=== PATIENT | female | born 1940 | race Caucasian/White ===

== ENCOUNTER → 2017-12-26 | Outpatient (CLI) | payer MEDICARE ==
--- NOTE | 2017-12-26 09:54 | CT ---
EXAMINATION TYPE: CT abdomen w con DATE OF EXAM: 12/26/2017 HISTORY: Rt flank pain, history of Rt renal CA with partial nephrectomy. Abdominal pain not further s pecified per order. CT DLP: 370.4mGycm Automated Exposure Control for Dose Reduction was Utilized. CONTRAST: CT scan of the abdomen is performed with IV Contrast, patient injected with 100 mL of Omnipaque 300. COMPARISON: None. FINDINGS: LUNG BASES: No significant abnormality is appreciated. LIVER/GB: Cholecystectomy clips are seen. PANCREAS: No significant abnormality is seen. SPLEEN: No significant abnormality is seen. ADRENALS: No significant abnormality is seen. KIDNEYS: There are numerous surgical clips from partial nephrectomy upper pole level right kidney. Ad jacent cortical thinning is seen. There is simple appearing exophytic 1.3 cm cyst posterior medially upper to mid pole left kidney series 3 image 26. There is symmetric cortical medullary uptake and exc retion from both kidneys without evidence of concerning solid or cystic renal mass or hydronephrosis bilaterally. There is subcentimeter hypodense lesion upper pole level right kidney seen best coronal image 61 too small to further characterize but presumed benign. BOWEL: Oral contrast does not reach colonic level. There is no suspicious small or large bowel dilata tion. LYMPH NODES: No greater than 1cm abdominal lymph nodes are appreciated. OSSEOUS STRUCTURES: There is moderate multilevel lateral spurring in the thoracic spine. There is vac uum disc phenomenon with moderate disc space narrowing T11-T12 level. OTHER: There is moderate mixed plaque in the visualized aorta extending into iliac branch vessels IMPRESSION: No significant finding is seen to account for patient's clinical symptoms of right flank pain. Post partial nephrectomy changes upper pole level noted.
== END | disposition home or self-care (01) ==
LOC: RADCTMAIN 08:31
PROVIDERS: ATTEND Internal Medicine Geriatric Medicine
DX: R10.9 Unspecified abdominal pain (principal); Z90.5 Acquired absence of kidney
CPT/HCPCS: 74160; Q9967

== ENCOUNTER → 2018-03-01 | Outpatient (CLI) | payer MEDICARE ==
--- NOTE | 2018-03-04 12:12 | MM ---
Reason for exam: screening (asymptomatic). Last mammogram was performed 2 years ago. History: Patient is postmenopausal and has history of other cancer at age 68. Benign excisional biopsy of the left breast, 1989. Physical Findings: A clinical breast exam by your physician is recommended on an annual basis and results should be correlated with mammographic findings. MG 3D Screening Mammo W/Cad Bilateral CC and MLO view(s) were taken. Prior study comparison: March 02, 2016, mammogram, performed at [facility]. There are scattered fibroglandular densities. Finding #1: There is a 6 mm round mass in the subareolar position of the right breast CC view 15/ and MLO view /. Finding #2: There are typically benign round, linear calcifications in both breasts. New finding since March 02, 2016. ASSESSMENT: Incomplete: need additional imaging evaluation, BI-RAD 0 RECOMMENDATION: Ultrasound of the right breast. [facility] will attempt to contact patient to return for ultrasound.
== END | disposition home or self-care (01) ==
LOC: RADMAMWWP 10:11
PROVIDERS: ATTEND Internal Medicine Geriatric Medicine
DX: Z12.31 Encounter for screening mammogram for malignant neoplasm of breast (principal)
CPT/HCPCS: 77063; 77067

== ENCOUNTER 2018-03-13 07:54 | Day surgery (SDC) | payer MEDICARE ==
[2018-03-08 13:45] VITALS: BMI 23.6
[~2018-03-13 07:54] MED LIST: LACTATED RINGERS 1,000 ML IV SCH
[2018-03-13 08:26] VITALS: RESP 16; TEMP 98.6
[2018-03-13] MEDS ORDERED: LIDOCAINE 1% 20 ML VIAL (10MG/ML) FOR IV START INTRADERMA ONE (08:42)
[2018-03-13] MEDS ORDERED: PROPOFOL 10 MG/ML 20 ML VIAL IV ONE (09:48)
[2018-03-13] MEDS ORDERED: GLYCOPYRROLATE 0.2 MG/ML 2 ML VIAL ONE (09:48)
[2018-03-13] MEDS ORDERED: LIDOCAINE 1% INJ 10MG/ML (20 ML MDV) ONE (09:48)
--- NOTE | 2018-03-13 09:56 | P.GSHP ---
History of Present Illness H&P Date: 03/13/18 Chief Complaint: Screening colonoscopy This a 77-year-old female who presents today for screening colonoscopy. Patient denies any significant GI complaints. Her last colonoscopy was over 4 years ago. She had colon polyps that time. Past Medical History Past Medical History: Cancer, Hyperlipidemia, Hypertension Additional Past Medical History / Comment(s): HX OF KIDNEY CANCET (2008), HX OF COLON POLYPS, CURRENTLY HAS MASS RIGHT BREAST., PT CARES FOR HER WHO HAS ALZHEIMERS. History of Any Multi-Drug Resistant Organisms: None Reported Past Surgical History: Section, Cholecystectomy Additional Past Surgical History / Comment(s): PORTION OF KIDNEY REMOVED FROM CANCER., COLONOSCOPY Past Anesthesia/Blood Transfusion Reactions: No Reported Reaction Past Psychological History: No Psychological Hx Reported Smoking Status: Former smoker Past Alcohol Use History: Rare Additional Past Alcohol Use History / Comment(s): QUIT SMOKING 2008., SMOKED SOCIALLY 1 CARTON PER MONTH. Past Drug Use History: None Reported - Past Family History Father Family Medical History: Cancer Sister(s) Family Medical History: Cancer Additional Family Medical History / Comment(s): LUNG CANCER. COLON CANCER Medications and Allergies Home Medications Medication Instructions Recorded Confirmed Type Lovastatin [Mevacor] 20 mg PO HS 03/08/18 03/13/18 History Naproxen Sodium [Aleve] 220 mg PO DAILY PRN 03/08/18 03/13/18 History amLODIPine [Norvasc] 5 mg PO HS 03/08/18 03/13/18 History Allergies Allergy/AdvReac Type Severity Reaction Status Date / Time codeine Allergy Unknown Swelling Verified 03/13/18 08:33 of Tongue Penicillins Allergy Unknown Rash/Hives Verified 03/13/18 08:33 aspirin AdvReac Abdominal Verified 03/13/18 08:33 Pain- Burning Surgical - Exam Vital Signs Temp Pulse Resp BP Pulse Ox 98.6 F 74 16 161/72 96 03/13/18 08:10 03/13/18 08:10 03/13/18 08:10 03/13/18 08:10 03/13/18 08:10 - General well developed, no distress - Eyes PERRL - ENT normal pinna - Neck no masses - Respiratory normal expansion - Cardiovascular Rhythm: regular - Abdomen Abdomen: soft, non tender Assessment and Plan Assessment: History of colonic polyps We'll perform screening colonoscopy.
--- NOTE | 2018-03-13 10:17 | P.OP ---
Date of Procedure: 03/13/18 Preoperative Diagnosis: Screening colonoscopy Postoperative Diagnosis: Normal colonoscopy Procedure(s) Performed: Colonoscopy Anesthesia: MAC Surgeon: Minh Almeida Pathology: none sent Condition: stable Disposition: PACU Description of Procedure: PROCEDURE: The patient was placed on the endoscopy table in the lateral position. Digital rectal examination was performed which revealed no abnormalities. es. Flexible colonoscope was then placed in the patient's anus and passed throughout the entire colon. The ileocecal valve was visualized. The cecum, ascending, transverse, descending and sigmoid colon were normal. The rectum was normal as well. There were no masses, polyps or diverticula noted in the entire colon. SUMMARY OF FINDINGS: Normal colonoscopy.
[2018-03-13 10:59] VITALS: BP 140/70; PULSE 72
== END 2018-03-13 11:12 | disposition home or self-care (01) ==
LOC: ORWHC2ENDO 07:54
PROVIDERS: ATTEND Surgery
DX: Z12.11 Encounter for screening for malignant neoplasm of colon (principal); E78.5 Hyperlipidemia, unspecified; I10 Essential (primary) hypertension; Z85.528 Personal history of other malignant neoplasm of kidney; Z90.49 Acquired absence of other specified parts of digestive tract; Z87.891 Personal history of nicotine dependence; Z86.010 Personal history of colon polyps; Z80.0 Family history of malignant neoplasm of digestive organs; Z80.1 Family history of malignant neoplasm of trachea, bronchus and lung; Z88.0 Allergy status to penicillin; Z88.5 Allergy status to narcotic agent; Z88.6 Allergy status to analgesic agent; Z79.899 Other long term (current) drug therapy; Z90.5 Acquired absence of kidney
CPT/HCPCS: J2001; J2704; G0105; 45378

== ENCOUNTER → 2018-03-15 | Outpatient (CLI) | payer MEDICARE ==
--- NOTE | 2018-03-15 11:27 | USB ---
Reason for exam: additional evaluation requested from abnormal screening. History: Patient is postmenopausal and has history of other cancer at age 68. Family history of breast cancer in sister. Benign excisional biopsy of the left breast, 1989. Physical Findings: Nurse Summary: all soft, nodular, movable (nurse ts). US Breast Workup Limited RT Right breast ultrasound demonstrates ductal ectasia at the posterior nipple. These results were verbally communicated with the patient and result sheet given to the patient on 03/15/18. ASSESSMENT: Probably benign, BI-RAD 3 RECOMMENDATION: Follow-up diagnostic mammogram of the right breast in 6 months.
== END | disposition home or self-care (01) ==
LOC: RADUSWWP 10:21
PROVIDERS: ATTEND Internal Medicine Geriatric Medicine
DX: R92.8 Other abnormal and inconclusive findings on diagnostic imaging of breast (principal); Z80.3 Family history of malignant neoplasm of breast

== ENCOUNTER → 2019-09-18 | Outpatient (CLI) | payer MEDICARE ==
--- NOTE | 2019-09-18 13:29 | XR ---
EXAMINATION TYPE: XR shoulder complete LT DATE OF EXAM: 09/18/2019 COMPARISON: NONE HISTORY: 79-year-old female with left shoulder pain TECHNIQUE: 3 views FINDINGS: Mild degenerative joint space narrowing at the AC joint. Subacromial space is preserved. No tendinous or bursal calcifications. No acute fracture, subluxation, or dislocation seen. IMPRESSION: Mild AC joint OA. No acute osseous abnormality seen.
--- NOTE | 2019-09-18 16:27 | BD ---
EXAMINATION TYPE: Axial Bone Density DATE OF EXAM: 09/18/2019 COMPARISON: NONE CLINICAL HISTORY: 79-year-old female postmenopausal screening Height: 5 FT 2 3/4 IN Weight: 137 FRAX RISK QUESTIONS: Secondary Osteoporosis: 3. Menopause before 45: YES RISK FACTORS HISTORY OF: Surgery to Spine/Hip(right/left)/Wrist (right/left): CYST REMOVED FROM THE LEFT WRIST Active: YES Postmenopausal woman: TOTAL HYST AGE 36 Take estrogen and/or progesterone medications: TOOK FOR ONE YEAR AFTER HYST NO LONGER TAKES MEDICATIONS: Additional Medications: AMLODIPINE,LOSARTIN Additional History: EXAM MEASUREMENTS: Bone mineral densitometry was performed using the [employer] System. Bone mineral density as measured about the Lumbar spine is: ----- L1-L4(G/cm2): 1.056 T Score Values are as follows: ----- L2: -1.3 ----- L3: -1.0 ----- L4: -1.4 ----- L1-L4: -1.0 BASELINE Bone mineral density about the R hip (g/cm2): 0.868 Bone mineral density about the L hip (g/cm2): 0.794 T Score values are as follows: -----R Neck: -1.2 -----L Neck: -1.8 -----R Total: -0.6 -----L Total: -0.6 BASELINE IMPRESSION: Osteopenia (T Score between -2.5 and -1). There is slightly increased risk of fracture and the patient may be considered for treatment. Re-Screen 2-5 years. NOTE: T-SCORE=SD OF THE YOUNG ADULT MEAN.
--- NOTE | 2019-09-19 14:13 | MM ---
Reason for exam: screening (asymptomatic). Last mammogram was performed 1 year and 7 months ago. History: Patient is postmenopausal and has history of other cancer at age 68. Family history of breast cancer in sister. Benign excisional biopsy of the left breast, 1989. Physical Findings: A clinical breast exam by your physician is recommended on an annual basis and results should be correlated with mammographic findings. MG 3D Screening Mammo W/Cad Bilateral CC and MLO view(s) were taken. Prior study comparison: March 01, 2018, bilateral MG 3d screening mammo w/cad. March 02, 2016, mammogram, performed at [facility]. The breast tissue is heterogeneously dense. This may lower the sensitivity of mammography. There is increased size of an 8mm right retroareolar mass, previously 6mm on 03/01/18. Patient did not return for recommended 6 month follow up diagnostic mammogram. Repeat ultrasound recommended to compare size and morphology. No suspicious abnormality on the left breast. ASSESSMENT: Incomplete: need additional imaging evaluation, BI-RAD 0 RECOMMENDATION: Ultrasound of the right breast. (retroareolar and area of pain) [facility] will attempt to contact patient to return for ultrasound.
== END | disposition home or self-care (01) ==
LOC: RADBDWWP 08:42
PROVIDERS: ATTEND Internal Medicine Geriatric Medicine
DX: Z12.31 Encounter for screening mammogram for malignant neoplasm of breast (principal); M85.80 Other specified disorders of bone density and structure, unspecified site; M19.012 Primary osteoarthritis, left shoulder
CPT/HCPCS: 77063; 77067; 77080

== ENCOUNTER → 2019-10-21 | Outpatient (CLI) | payer MEDICARE ==
--- NOTE | 2019-10-21 10:51 | USB ---
Reason for exam: additional evaluation requested from abnormal screening. History: Patient is postmenopausal and has history of other cancer at age 68. Family history of breast cancer in sister. Benign excisional biopsy of the left breast, 1989. Physical Findings: Nurse Summary: bilateral soft, movable (nurse cw). US Breast Workup Limited RT Right limited breast ultrasound including focal area of concern, retroareolar and axilla demonstrates ductal ectasia noted at the posterior nipple. These results were verbally communicated with the patient and result sheet given to the patient on 10/21/19. ASSESSMENT: Probably benign, BI-RAD 3 RECOMMENDATION: Follow-up diagnostic mammogram of the right breast in 6 months. Manage on a clinical basis with regard to right upper outer quadrant pain.
== END ==
LOC: RADUSWWP 10:05
PROVIDERS: ATTEND Internal Medicine Geriatric Medicine
DX: R92.8 Other abnormal and inconclusive findings on diagnostic imaging of breast (principal)

== ENCOUNTER → 2020-07-13 | Outpatient (CLI) | payer MEDICARE ==
--- NOTE | 2020-07-14 07:58 | MM ---
Reason for exam: follow-up at short interval from prior study. Last mammogram was performed 10 months ago. History: Patient is postmenopausal and has history of other cancer at age 68. Family history of breast cancer in sister at age 68. Benign excisional biopsy of the left breast, 1989. Took estrogen for 2 years beginning at age 36. Physical Findings: Nurse did not find any significant physical abnormalities on exam. MG 3D Diag Mammo W/Cad RT CC and MLO view(s) were taken of the right breast. Prior study comparison: September 18, 2019, bilateral MG 3d screening mammo w/cad. March 01, 2018, bilateral MG 3d screening mammo w/cad. The breast tissue is heterogeneously dense. This may lower the sensitivity of mammography. Stable benign calcifications. There is chronic nodularity in the right breast. No significant new findings when compared with previous films. These results were verbally communicated with the patient and result sheet given to the patient on 07/13/20. ASSESSMENT: Benign, BI-RAD 2 RECOMMENDATION: Return to routine screening mammogram schedule for both breasts. Back on schedule for October 2020.
== END | disposition home or self-care (01) ==
LOC: RADMAMWWP 14:23
PROVIDERS: ATTEND Internal Medicine Geriatric Medicine
DX: R92.2 Inconclusive mammogram (principal)
CPT/HCPCS: 77065; G0279; 77061

== ENCOUNTER → 2020-07-22 | Outpatient (CLI) | payer MEDICARE ==
--- NOTE | 2020-07-22 12:52 | US ---
EXAMINATION TYPE: US kidneys/renal and bladder DATE OF EXAM: 07/22/2020 COMPARISON: Correlation CT abdomen 12/26/2017 CLINICAL HISTORY: 79-year-old female C64.1 Kidney Ca. Partial right upper pole kidney nephrectomy due to CA. TECHNIQUE: Multiple sonographic images of the kidneys and bladder are obtained. FINDINGS: EXAM MEASUREMENTS: Right Kidney: 9.3 x 3.8 x 4.4 cm Left Kidney: 10.1 x 4.3 x 5.8 cm Right Kidney: No hydronephrosis. Limited visualization of upper pole due to overlying bowel gas. Left Kidney: No hydronephrosis. Medial upper pole cortical cyst measuring 2.2 x 1.7 x 2.0 cm Bladder: Under distention limits evaluation. Bilateral Jets seen IMPRESSION: 1. The upper pole, corresponding to the location of patient's previous partial nephrectomy is obscure d by bowel gas shadowing and not well assessed by ultrasound. Further cross-sectional evaluation as c linically indicated. 2. No hydronephrosis. 3. Benign 2.2 cm left renal cyst.
== END | disposition home or self-care (01) ==
LOC: RADUSWWP 10:28
PROVIDERS: ATTEND Nurse Practitioner Family
DX: N28.1 Cyst of kidney, acquired (principal); Z90.5 Acquired absence of kidney; Z85.520 Personal history of malignant carcinoid tumor of kidney
CPT/HCPCS: 76770

== ENCOUNTER 2020-08-05 10:05 | Day surgery (SDC) | payer MEDICARE ==
[2020-08-02 14:58] VITALS: BMI 23.0
[2020-08-05 10:53] VITALS: RESP 16; TEMP 98.5
[2020-08-05] MEDS ORDERED: LIDOCAINE 1% (10MG/ML) FOR IV START INTRADERMA ONE (11:01)
[2020-08-05] MEDS ORDERED: PROPOFOL 10 MG/ML 20 ML VIAL IV ONE (11:26)
--- NOTE | 2020-08-05 11:39 | P.PCN ---
Date of Procedure: 08/05/20 Procedure(s) Performed: BRIEF HISTORY: Patient is a 79-year-old, pleasant, white female scheduled for an upper endoscopy as a part of evaluation of long-standing history of GERD of several years duration. She takes Prilosec as needed. She is scheduled for an upper endoscopy were complicated reflux disease.. PROCEDURE PERFORMED: Esophagogastroduodenoscopy with biopsy. PREOPERATIVE DIAGNOSIS: Long-standing history of GERD. IV sedation per anesthesia. PROCEDURE: After informed consent was obtained, the patient was brought into the endoscopy unit. IV sedation was administered by Anesthesia under continuous monitoring. Initially the Olympus GIF-140 video endoscope was inserted into the mouth. Esophagus intubated without any difficulty. It was gradually advanced into the stomach and duodenum and carefully examined. The bulb and the second part of the duodenum appeared normal. The scope at this time was withdrawn to the stomach, adequately insufflated with air, and upon careful examination, mucosa of the antrum had mild gastritis and biopsies were done from this area. The, body, cardia and the fundus appeared normal. The scope was then withdrawn into the esophagus. Small sliding Hiatal hernia noted. The GE junction was located at 39 cm from the incisors. There was a 2 mm island of Zavala's appearing mucosa just proximal to the GE junction status post biopsy. The rest of the esophagus appeared normal. There were no erosions or ulcerations seen and the patient tolerated the procedure well. IMPRESSION: 1. Small hiatal hernia and short segment Zavala's esophagus. 2. Mild antral gastritis. RECOMMENDATIONS: The findings of this examination were discussed with the patien t as well as a family. She was advised to follow with the biopsy results. She will continue with Prilosec 20 mg daily to be taken half hour before dinner and follow antireflux measures.
[2020-08-05 12:08] VITALS: BP 139/79; PULSE 72
== END 2020-08-05 12:20 | disposition home or self-care (01) ==
LOC: ORWHC2ENDO 10:05
PROVIDERS: ATTEND Internal Medicine Gastroenterology
DX: K21.0 Gastro-esophageal reflux disease with esophagitis (principal); K22.70 Barrett's esophagus without dysplasia; K29.50 Unspecified chronic gastritis without bleeding; K44.9 Diaphragmatic hernia without obstruction or gangrene; I10 Essential (primary) hypertension; E78.5 Hyperlipidemia, unspecified; Z88.5 Allergy status to narcotic agent; Z88.0 Allergy status to penicillin; Z88.6 Allergy status to analgesic agent; Z85.528 Personal history of other malignant neoplasm of kidney; Z79.899 Other long term (current) drug therapy
CPT/HCPCS: 88305; 43239; J2704

== ENCOUNTER → 2020-11-23 | Outpatient (CLI) | payer MEDICARE ==
--- NOTE | 2020-11-23 17:26 | ECHOF ---
Referral Reason:R60.9 edema MEASUREMENTS -------- HEIGHT: 162.6 cm WEIGHT: 64.4 kg BP: IVSd: 1.2 cm (0.6 - 1.1) LVIDd: 3.0 cm (3.9 - 5.3) LVPWd: 1.2 cm (0.6 - 1.1) IVSs: 1.7 cm LVIDs: 1.4 cm LVPWs: 2.1 cm LAESV Index (A-L): 14.90 ml/m Ao Diam: 2.6 cm (2.0 - 3.7) AV Cusp: 1.5 cm (1.5 - 2.6) LA Diam: 3.1 cm (2.7 - 3.8) MV EXCURSION: 8.330 mm (> 18.000) MV EF SLOPE: 47 mm/s (70 - 150) EPSS: 1.4 cm MV E Steven: 0.96 m/s MV DecT: 247 ms MV A Steven: 1.01 m/s MV E/A Ratio: 0.95 RAP: 5.00 mmHg RVSP: 25.25 mmHg FINDINGS -------- This was a technically adequate study. The left ventricular size is normal. There is mild concentric left ventricular hypertrophy. Overa ll left ventricular systolic function is normal with, an EF between 55 - 60 %. The diastolic fillin g pattern is normal for the age of the patient 10.35. The right ventricle is normal in size. The left atrial size is normal. Normal LA size by volume 22+/-6 ml/m2. The right atrial size is normal. Interatrial and interventricular septum intact. The aortic valve is trileaflet and appears structurally normal. The mitral valve is normal. There is trace mitral regurgitation. The tricuspid valve appears structurally normal. Trace tricuspid regurgitation present. Right sarah tricular systolic pressure is normal at < 35 mmHg. There is no pulmonic regurgitation present. The aortic root size is normal. Normal inferior vena cava with normal inspiratory collapse consistent with estimated right atrial pre ssure of 5 mmHg. There is no pericardial effusion. CONCLUSIONS -------- 1. The left ventricular size is normal. 2. There is mild concentric left ventricular hypertrophy. 3. Overall left ventricular systolic function is normal with, an EF between 55 - 60 %. 4. The diastolic filling pattern is normal for the age of the patient 10.35 5. There is trace mitral regurgitation. 6. Trace tricuspid regurgitation present. 7. The aortic root size is normal. 8. There is no pericardial effusion. CLERICAL SUPPORT: Aida Patricio RDCS
== END | disposition home or self-care (01) ==
LOC: RADECHMAIN 12:15
PROVIDERS: ATTEND Nurse Practitioner Family
DX: I51.7 Cardiomegaly (principal)
CPT/HCPCS: 93306

== ENCOUNTER → 2021-11-02 | Outpatient (CLI) | payer MEDICARE ==
--- NOTE | 2021-11-02 14:20 | BD ---
EXAMINATION TYPE: Axial Bone Density DATE OF EXAM: 11/02/2021 COMPARISON: NONE CLINICAL HISTORY: Height: 64 Weight: 138.0 FRAX RISK QUESTIONS: Alcohol (3 or more units per day): no Family History (Parent hip fracture):no Glucocorticoids (More than 3mos): no (Ex: prednisone, prednisolone, methylprednisolone, dexamethasone, and hydrocortisone). History of Fracture in Adulthood: no Secondary Osteoporosis: 1. Type 1 Diabetes: no 2. Hyperthyroidism: no 3. Menopause before 45: yes 4. Malnutrition: no 5. Chronic liver disease: no Rheumatoid Arthritis: no Current Tobacco Use: no RISK FACTORS HISTORY OF: Surgery to Spine/Hip(right/left)/Wrist (right/left): no Family History of Osteoporosis: no Active: yes Diet low in dairy products/other sources of calcium: no Postmenopausal woman: yes Lost more than 2 inches in height since high school: no MEDICATIONS: Additional History: EXAM MEASUREMENTS: Bone mineral densitometry was performed using the [employer] System. Bone mineral density as measured about the Lumbar spine is: ----- L1-L4(G/cm2): 1.044 T Score Values are as follows: ----- L2: -1.6 ----- L3: -1.0 ----- L4: -1.3 ----- L1-L4: -1.1 Bone mineral density has: decreased -0.6 % since study of: 09.18.2019 Bone mineral density about the R hip (g/cm2): 0.843 Bone mineral density about the L hip (g/cm2): 0.828 T Score values are as follows: -----R Neck: -1.4 -----L Neck: -1.5 -----R Total: -0.2 -----L Total: -0.6 Bone mineral density has: increased 2.4 % since study of: 09.18.2019 IMPRESSION: Osteopenia (T Score between -2.5 and -1). There is slightly increased risk of fracture and the patient may be considered for treatment. Re-Screen 2-5 years. NOTE: T-SCORE=SD OF THE YOUNG ADULT MEAN.
--- NOTE | 2021-11-04 11:58 | MM ---
Reason for exam: screening (asymptomatic). Last mammogram was performed 1 year and 4 months ago. History: Patient is postmenopausal and has history of other cancer at age 68. Family history of breast cancer in sister at age 68. Benign excisional biopsy of the left breast, 1989. Took estrogen for 2 years beginning at age 36. Physical Findings: A clinical breast exam by your physician is recommended on an annual basis and results should be correlated with mammographic findings. MG 3D Screening Mammo W/Cad Bilateral CC and MLO view(s) were taken. Prior study comparison: July 13, 2020, right breast MG 3d diag mammo w/cad RT. September 18, 2019, bilateral MG 3d screening mammo w/cad. There are scattered fibroglandular densities. Benign vascular calcifications and secretory calcifications. Stable subareolar asymmetric densities. No significant changes when compared with prior studies. ASSESSMENT: Benign, BI-RAD 2 RECOMMENDATION: Routine screening mammogram of both breasts in 1 year.
== END | disposition home or self-care (01) ==
LOC: RADMAMWWP 12:35
PROVIDERS: ATTEND Internal Medicine
DX: Z12.31 Encounter for screening mammogram for malignant neoplasm of breast (principal); M85.89 Other specified disorders of bone density and structure, multiple sites; Z80.3 Family history of malignant neoplasm of breast; Z78.0 Asymptomatic menopausal state
CPT/HCPCS: 77063; 77067; 77080

== ENCOUNTER → 2024-05-23 | Outpatient (CLI) | payer MEDICARE ==
[2024-05-23 09:52] LABS: African American GFR (CKD) 83 (>60 ml/min/1.73 sqM); Blood Urea Nitrogen 19 mg/dL (7-17); Non-African American GFR(CKD) 72 (>60 ml/min/1.73 sqM)
--- NOTE | 2024-05-23 10:50 | FL ---
EXAMINATION TYPE: FL barium swallow DATE OF EXAM: 05/23/2024 CLINICAL HISTORY: Left facial swelling and history of acid reflux TECHNIQUE: A single contrast esophagram is performed utilizing air and barium. A total of 38 second s of fluoroscopic time was utilized during procedure and 20 images obtained. Total dose area product (DAP) in uGy*m?, mGy*cm? (or similar) Not provided. COMPARISON: None FINDINGS: Surgical clips in the upper abdomen noted. The barium was swallowed without difficulty and passed in the esophagus without delay. There is a tertiary contractions esophagus and a small hiatal hernia. There does appear to be mild full thickness near the GE junction with a mild area of narrowin g of the distal esophagus which could be related to reflux esophagitis and stricture IMPRESSION: 1. Small hiatal hernia with very mild concentric narrowing of the distal esophagus possibly related t o chronic reflux\mild stricture. Correlate for history of esophagitis\reflux. Consider follow-up EGD.
--- NOTE | 2024-05-23 17:07 | CT ---
EXAMINATION TYPE: CT soft tissue neck w con CT DLP: 395 mGycm, Automated exposure control for dose reduction was used. DATE OF EXAM: 05/23/2024 10:22 AM COMPARISON: None. 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 Axial sections with coronal and sagittal reformats were obtained. Contrast used:100 mL of Isovue 300 with IV Contrast, (None if empty) Oral contrast used: (None if empty) FINDINGS: Brain: Visualized portions are grossly unremarkable. Orbits: Bilateral aphakia. Sinuses: Grossly unremarkable. Spaces of the neck: Clear and symmetric. The parotid, submandibular, sublingual glands as well as Hector nsen's duct Kenneth's duct appear within normal limits. No calculi visualized. The mucosa and Frontal space appear symmetric. Musculoskeletal: No acute osseous pathology. Lymph nodes: Multiple nonenlarged lymph nodes are seen along both anterior chains of the neck. Vascular structures: Visualized major arteries are patent without evidence of aneurysm. Thoracic Inlet/airway: Airway is patent. The lung apices are clear. Soft tissues/Thyroid: Thyroid and remainder of the soft tissues are unremarkable. Other: none. IMPRESSION 1. No evidence for sialoadenitis. No calculi visualized.. 2. No acute process.
== END | disposition home or self-care (01) ==
LOC: RADCTMAIN 08:54
PROVIDERS: ATTEND Otolaryngology
DX: K11.23 Chronic sialoadenitis (principal); R13.19 Other dysphagia; K21.00 Gastro-esophageal reflux disease with esophagitis, without bleeding; K44.9 Diaphragmatic hernia without obstruction or gangrene; R22.0 Localized swelling, mass and lump, head
CPT/HCPCS: 82565; 84520; 74220; 70491; 36415; Q9967

== ENCOUNTER → 2024-05-29 | Outpatient (CLI) | payer MEDICARE ==
--- NOTE | 2024-06-12 12:05 | NM ---
EXAMINATION TYPE: NM DatScan Brain SPECT DATE OF EXAM: 05/29/2024 COMPARISON: NONE HISTORY: Number TECHNIQUE: 10 drops of Lugol's solution was administered 1 hour prior to injection as a thyroid bloc bandar agent. After the administration of 4.95 mCi I-123 Ioflupane DaTscan. Images obtained 3 hours p ost injection. SPECT images of the brain were acquired with axial and coronal reconstructions. FINDINGS: The axial SPECT images demonstrate normal background activity and normal activity within th e bilateral striata. Z score analysis within normal limits. IMPRESSION: Normal uptake bilaterally with no evidence to suggest idiopathic Parkinson's disease or p arkinsonian syndrome.
== END | disposition home or self-care (01) ==
LOC: RADNMMAIN 08:01
PROVIDERS: ATTEND Psychiatry & Neurology Neurology
DX: R25.1 Tremor, unspecified (principal); R29.898 Other symptoms and signs involving the musculoskeletal system; R25.8 Other abnormal involuntary movements
CPT/HCPCS: 78803; A9584

== ENCOUNTER 2024-07-01 09:15 | Day surgery (SDC) | payer MEDICARE ==
[~2024-07-01 09:15] MED LIST changes: +LACTATED RINGERS 1,000 ML BAG ONE; -LACTATED RINGERS 1,000 ML IV SCH
[2024-07-01] MEDS ORDERED: PROPOFOL 10 MG/ML 20 ML VIAL IV ONE (09:27)
--- NOTE | 2024-07-11 15:53 | OP ---
OPERATIVE REPORT DATE OF SERVICE : 07/01/2024 REQUESTING PHYSICIAN: Dr. Moreno Ash BRIEF HISTORY: The patient is an 83-year-old pleasant white female scheduled for an upper endoscopy as a part of evaluation of intermittent dysphagia to solids for the last 2 months duration. Lately, her symptoms have been progressively getting worse. She is scheduled for an upper endoscopy with possible dilation. She does have history of GERD and has been on Nexium 20 mg daily. PROCEDURE PERFORMED: Esophagogastroduodenoscopy with biopsy and dilation. PREOPERATIVE DIAGNOSIS: Intermittent dysphagia to solids. ANESTHESIA: IV sedation per Anesthesia. DESCRIPTION OF PROCEDURE: After informed consent was obtained from the patient, she was brought into the endoscopy unit. IV conscious sedation was administered by Anesthesia on continuous monitoring. Initially, Olympus video 180 video endoscope was inserted into the mouth, esophagus, intubated without any difficulty and was gradually advanced into the stomach and duodenum and carefully examined. Bulb and the second part of the duodenum appeared normal. The scope at this time was down to the stomach, adequately insufflated with air and upon careful examination, because of antrum and mild gastritis, biopsies for H. pylori were done. Body of the stomach appeared normal and retroflexion of cardia and fundus appeared normal. The scope was then withdrawn to the esophagus. The GE junction was located at 40 cm from the incisors. There was a small hiatal hernia noted. There was a widely patent distal esophageal Schatzki's ring identified and this was dilated using 18 to 20 mm TTS balloon in a sequential fashion for 30 seconds. The rest of the esophagus appeared normal. Biopsies were done from the distal esophagus and the patient tolerated the procedure well. IMPRESSION: 1. Distal esophageal widely patent Schatzki's ring, status post balloon dilation using 18 to 20 mm TTS balloon as described above. 2. Small hiatal hernia. 3. Mild antral gastritis. RECOMMENDATIONS: The findings of this examination were discussed with the patient as well as her family. She was advised to follow up with the biopsy results. Recommend clear liquids for 2 hours. Continue with Nexium 20 mg daily and follow anti-reflux measures. Follow up in office in 1 month. MMODL / IJN: [id number] /
== END 2024-07-01 10:20 ==
LOC: ORWHC2ENDO 09:15
PROVIDERS: ATTEND Internal Medicine Gastroenterology
DX: R13.10 Dysphagia, unspecified
CPT/HCPCS: 43239; 88305